=== PATIENT | male | born 1995 | race Caucasian/White ===

== ENCOUNTER 2022-02-22 17:48 | Emergency (ER) | payer SELFPAY ==
[~2022-02-22] VITALS: Ht 167.6 cm; Wt 65.0 kg
[2022-02-22 17:54] VITALS: BP 150/93
[2022-02-22] MEDS ORDERED: HydrOXYzine HCL 25 MG TABLET PO ONE (18:45)
== END 2022-02-22 18:49 | disposition home or self-care (01) ==
LOC: EMS 17:50
DX: F41.9 Anxiety disorder, unspecified (principal); F12.90 Cannabis use, unspecified, uncomplicated; F15.90 Other stimulant use, unspecified, uncomplicated; Z79.899 Other long term (current) drug therapy
CPT/HCPCS: 93005; 99283

== ENCOUNTER 2022-07-20 11:14 | Emergency (ER) | payer MEDICAID ==
[~2022-07-20] VITALS: Ht 170.2 cm; Wt 72.7 kg
[2022-07-20 11:28] VITALS: BP 149/82
[2022-07-20] MEDS ORDERED: BENZ-70 PO (11:58)
[2022-07-20] MEDS ORDERED: HYDR-4527 PO (11:58)
== END 2022-07-20 12:27 | disposition home or self-care (01) ==
LOC: EMS 11:14
DX: F12.10 Cannabis abuse, uncomplicated (principal); F41.9 Anxiety disorder, unspecified; F10.20 Alcohol dependence, uncomplicated; F15.10 Other stimulant abuse, uncomplicated
CPT/HCPCS: 99283; Z7502